=== PATIENT | male | born 1955 | race Hispanic/Latino ===

== ENCOUNTER → 2024-03-24 | Outpatient (CLI) | payer MEDICARE | END | disposition home or self-care (01) | LOC: SHCH 08:14 | PROVIDERS: ATTEND Internal Medicine Cardiovascular Disease | DX: I08.8 Other rheumatic multiple valve diseases (principal); Z95.2 Presence of prosthetic heart valve; I11.9 Hypertensive heart disease without heart failure | CPT/HCPCS: 93306 ==